=== PATIENT | male | born 1965 | race Caucasian/White ===

== ENCOUNTER 2017-05-06 08:03 | Emergency (ER) | payer OTHER, SELFPAY ==
[2017-05-06 08:09] VITALS: BP 142/86; PULSE 77; RESP 20; TEMP 36.7; O2SAT 99; BMI 36.0
--- NOTE | 2017-05-06 08:33 | HMH.EDNVD ---
ED Disposition Clinical Impression: Nausea and vomiting in adult, Diarrhea, Left against medical advice Disposition: Home, Self-Care Condition on Discharge: Fair Instructions: DI for Diarrhea and Traveler's Diarrhea -- Adult, DI for Diarrhea and Traveler's Diarrhea -- Child, DI for Nausea -- Adult, DI for Nausea -- Child Additional Instructions: 1- gotraed 16 q 4 hours. 2- observe 4-5 times uop. 3- observe for fever, abdomina pian and muscle cramps to return. 4- return as needed. 5- pcp list for a recheck and health care screening. 6- stop smoking. 7- zofran for nausea and imodium for diarrhea. Prescriptions: Loperamide HCl [Imodium A-D] 2 mg PO Q6HP PRN #12 cap PRN Reason: Diarrhea Ondansetron [Zofran 4mg ODT] 4 mg PO Q8 PRN #6 tab.rapdis PRN Reason: Nausea - Critical Care Critical Care Time: No Attestation: On , the high probability of a clinically significant, sudden or life threatening deterioration of the following system(s) required my full and direct attention, intervention and personal management. The time I documented below is in addition to time spent performing reported procedures but includes the following listed in this critical care notation. Medical Decision Making Vital Signs: 05/06/17 08:09 Temperature 98.0 F Temperature Source Oral Pulse Rate [Right Brachial] 77 Respiratory Rate 20 Blood Pressure [Right Arm] 142/86 Blood Pressure Mean [Right Arm] 104 Blood Pressure Source [Right Arm] Automatic Cuff Blood Pressure Position [Right Arm] Sitting 02 Sat by Pulse Oximetry 99 Oxygen Delivery Method Room Air - Dano Inquiry Pt receiving controlled substance: No Dano was queried for this patient: No Medical Decision Making Narrative: Again I discussed with him obtaining labs and IV fluids he adamantely declined. And he has no desire to give us a stool sample, he stated he is here because his work made him come. He is alert oriented ?3, he agreed to receive Zofran and Imodium prescription. Be off work for 2 days. Continue to rehydrate using Gatorade. I informed him that we are open 24/ and he can return if he changes his mind. he verbalized understanding. Nausea/Vomiting/Diarrhea HPI - General Chief complaint: Nausea/Vomiting/Diarrhea Stated complaint: vomiting.,diarrhea Mode of Arrival: Ambulatory Limitations: No Limitations Description of Symptoms (Recalled from ER Triage Doc. by RN): Pt reports vomitting and diarrhea x2 days - History of Present Illness HPI Narrative: 51 yrs old wm with no pmhx. Yesterday he developed diarrhea 5-6 toimrs followed by vomiting x 2-3 , that persisted this morning when went to work. The work sent him here because he may be contagious, he is vomiting food and denies hematemsis, coffee ground emesis, bleeding per rectum or melanotic stool. he denies weakness, dizziness, chest pain, soa, dysuria or hematuria. he denies fever or chills but admits for mild body aches thathje contribute to his age. He dose have lower abdominal cramping with his diarrhea. The patient started that he had another cowroker with similar sx, he is able to hold liquids down and urinated 5-6 times a day, he is here because of his work and he does not want labs , IVF, and has no desire of an incoming BM to give us a sample. he is axox3 and desires to be receive a rx for nausea and diarrhea. MD complaint: nausea, vomiting, diarrhea Onset (ago): day(s) (started yesterday.) Description of Vomiting: food contents Description of Diarrhea: water Associated Abdominal Pain: Yes (lower abdominal cramping. ) Quality: cramping, other Consistency: now resolved Relieving factors: none Exacerbating factors: eating Context: sick contacts, other (His co-worker) - Related Data Previous Rx's Medication Instructions Recorded Loperamide HCl [Imodium A-D] 2 mg PO Q6HP PRN #12 cap 05/06/17 Ondansetron [Zofran 4mg ODT] 4 mg PO Q8 PRN #6 tab.rapdis 05/06/17 All
--- NOTE | 2017-05-06 08:41 | ED_ITS ---
ED Disposition Clinical Impression: Nausea and vomiting in adult, Diarrhea, Left against medical advice Disposition: Home, Self-Care Condition on Discharge: Fair Instructions: DI for Diarrhea and Traveler's Diarrhea -- Adult, DI for Diarrhea and Traveler's Diarrhea -- Child, DI for Nausea -- Adult, DI for Nausea -- Child Additional Instructions: 1- gotraed 16 q 4 hours. 2- observe 4-5 times uop. 3- observe for fever, abdomina pian and muscle cramps to return. 4- return as needed. 5- pcp list for a recheck and health care screening. 6- stop smoking. 7- zofran for nausea and imodium for diarrhea. Prescriptions: Loperamide HCl [Imodium A-D] 2 mg PO Q6HP PRN #12 cap PRN Reason: Diarrhea Ondansetron [Zofran 4mg ODT] 4 mg PO Q8 PRN #6 tab.rapdis PRN Reason: Nausea - Critical Care Critical Care Time: No Attestation: On , the high probability of a clinically significant, sudden or life threatening deterioration of the following system(s) required my full and direct attention, intervention and personal management. The time I documented below is in addition to time spent performing reported procedures but includes the following listed in this critical care notation. Medical Decision Making Vital Signs: 05/06/17 08:09 Temperature 98.0 F Temperature Source Oral Pulse Rate [Right Brachial] 77 Respiratory Rate 20 Blood Pressure [Right Arm] 142/86 Blood Pressure Mean [Right Arm] 104 Blood Pressure Source [Right Arm] Automatic Cuff Blood Pressure Position [Right Arm] Sitting 02 Sat by Pulse Oximetry 99 Oxygen Delivery Method Room Air - Dano Inquiry Pt receiving controlled substance: No Dano was queried for this patient: No Medical Decision Making Narrative: Again I discussed with him obtaining labs and IV fluids he adamantely declined. And he has no desire to give us a stool sample, he stated he is here because his work made him come. He is alert oriented ?3, he agreed to receive Zofran and Imodium prescription. Be off work for 2 days. Continue to rehydrate using Gatorade. I informed him that we are open 24/ and he can return if he changes his mind. he verbalized understanding. Nausea/Vomiting/Diarrhea HPI - General Chief complaint: Nausea/Vomiting/Diarrhea Stated complaint: vomiting.,diarrhea Mode of Arrival: Ambulatory Limitations: No Limitations Description of Symptoms (Recalled from ER Triage Doc. by RN): Pt reports vomitting and diarrhea x2 days - History of Present Illness HPI Narrative: 51 yrs old wm with no pmhx. Yesterday he developed diarrhea 5-6 toimrs followed by vomiting x 2-3 , that persisted this morning when went to work. The work sent him here because he may be contagious, he is vomiting food and denies hematemsis, coffee ground emesis, bleeding per rectum or melanotic stool. he denies weakness, dizziness, chest pain, soa, dysuria or hematuria. he denies fever or chills but admits for mild body aches thathje contribute to his age. He dose have lower abdominal cramping with his diarrhea. The patient started that he had another cowroker with similar sx, he is able to hold liquids down and urinated 5-6 times a day, he is here because of his work and he does not want labs , IVF, and has no desire of an incoming BM to give us a sample. he is axox3 and desires to be receive a rx for nausea and diarrhea. MD complaint: nausea, vomiting, diarrhea Onset (ago): day(s) (started yesterday.) Description of
[2017-05-06 08:58] VITALS: BP 118/75; PULSE 88; RESP 20; TEMP 36.6
== END 2017-05-06 09:02 | disposition home or self-care (01) ==
PROVIDERS: Emergency Provider Emergency Medicine; Family Provider Family Medicine Geriatric Medicine
DX: R11.2 Nausea with vomiting, unspecified (principal); R19.7 Diarrhea, unspecified; Z53.20 Procedure and treatment not carried out because of patient's decision for unspecified reasons
CPT/HCPCS: 99281

== ENCOUNTER → 2021-07-03 05:58 | Outpatient (CLI) | payer MEDICAID, SELFPAY ==
--- NOTE | 2021-07-03 07:41 | CA_ITS ---
APPROVED REPORT EXAM: Comprehensive 2D, Doppler, and color-flow Echocardiogram Poker Room Manager: Matrha Kelly RT(R) Ht: 5 ft 6 in Wt: 270lbs BSA: 2.27 BP: 138/82 mmHg Indications: abn EKG, COPD, smoker, MARTINEZ, obesity, HTN, AAA, history of cocaine use. 2D Dimensions LVOT 2.14 cm (M/F) 1.5-2.5 LVEF (Jacob's) 60.00 % M: 52 - 72 LV Volume 124.60 mL M: 62 - 150 LV Volume Index 54.88 mL/m2 M: 34 - 74 LA Volume 40.60 mL LA Volume Index 17.88 mL/m2 (M/F) 16-34 M-Mode Dimensions RVDd 3.13 cm (0.9-2.6) LA Diam 3.23 cm (1.9-4.0) LVDd 5.46 cm (3.5-5.7) Ao Diam 2.51 cm (2.0-3.7) LVDs 3.85 cm (3.5-5.7) IVSd 1.07 cm (0.6-1.1) PWd 0.89 cm (0.6-1.1) EF (Teich) 55.90% FS 29.50% EDV (Teich) 145.00 mL ESV (Teich) 63.90 mL LV Diastology E Decel Time 187.00 (160-240 msec) E/A Ratio 1.0 MED E' 9.70 (< 7 cm/sec) E'/MED E' Ratio 9.34 (>14) LAT E' 10.90 (<10 cm/sec) E/LAT E' Ratio 8.31 (>14) Mitral Valve MV E Max Sly. 91.00 (40-130 cm/s) MV A Velocity 87.00 (40-130 cm/s) E/A Ratio 1.04 MV Decel. Time 187.00 (160-240 ms) MV PHT 55.00 ms Left Ventricle Left atrium is mildly enlarged, left ventricle is normal size, mild concentric left ventricular hypertrophy, estimated ejection fraction 55% with no regional wall motion abnormality, diastolic parameters are inconclusive. Right Ventricle Right atrium and right ventricle are mildly enlarged with normal contractility. Aortic Valve Aortic valve is thickened and calcified without Doppler evidence of aortic stenosis or aortic insufficiency. Mitral Valve Mitral valve grossly normal, there is trace mitral regurgitation. Tricuspid Valve Tricuspid valve grossly normal, there is trace tricuspid regurgitation, tricuspid regurgitation jet velocity is inadequate for calculation of the right ventricular systolic pressure. Pulmonic Valve Pulmonic valve is poorly visualized. Great Vessels Aortic root is normal size. Inferior vena cava is poorly visualized. Pericardium No significant pericardial effusion noted. Conclusion 1. Mild biatrial enlargement, normal left ventricular size, mild concentric left ventricular hypertrophy, estimated ejection fraction 55% with no regional wall motion abnormality, diastolic parameters are inconclusive. 2. Mildly enlarged right ventricle with normal contractility. 3. Thickened and calcified aortic valve without aortic stenosis or aortic insufficiency. 4. Trace mitral and tricuspid regurgitation. 5. No significant pericardial effusion noted. Electronically signed by : Naeem Wilhelm MD 07/03/2021 09:53:27
--- NOTE | 2021-07-03 08:47 | US_ITS ---
FINAL REPORT CLINICAL HISTORY: family hx AAA FINDINGS: Sonographic images were obtained of the abdominal aorta. The abdominal aorta measures up to 2.8 cm in greatest dimensions. The common iliac arteries are within normal limits. IMPRESSION: No evidence of aneurysm. Reviewed, Interpreted and Dictated by Ry Uribe MD Transcribed by Khadar Leahy Authenticated by Ry Uribe MD on 07/03/2021 10:56:54 AM [facility]
== END ==
PROVIDERS: PCP Family Medicine Geriatric Medicine; Visit Provider Physician Assistant
DX: I51.7 Cardiomegaly (principal); I72.9 Aneurysm of unspecified site; R94.31 Abnormal electrocardiogram [ECG] [EKG]; I10 Essential (primary) hypertension; E78.5 Hyperlipidemia, unspecified; Z72.0 Tobacco use; Z82.49 Family history of ischemic heart disease and other diseases of the circulatory system
CPT/HCPCS: 76705; 78451; 78452; 93306; A9502